=== PATIENT | female | born 1980 | race Caucasian/White ===

== ENCOUNTER 2018-09-29 10:44 | Emergency (ER) | payer OTHER ==
[2018-09-29 10:53] VITALS: TEMP 98.1
[2018-09-29] MEDS ORDERED: SODIUM CHLORIDE 0.9% 1,000 ML IV STA (11:20)
--- NOTE | 2018-09-29 11:30 | ED ---
General Adult HPI - General Chief complaint: Shortness of Breath Stated complaint: cough/SOB Time Seen by Provider: 09/29/18 10:58 Source: patient, RN notes reviewed Mode of arrival: ambulatory Limitations: no limitations - History of Present Illness Initial comments: Patient is a 38-year-old female presented to the emergency room today with a chief complaint of increased cough congestion shortness of breath. She does admit that symptoms started last week. She states that it started as a cold with cough and congestion. She states that she still having some sinus drainage that she is having consistent coughing that she feels is making her feel short of breath. She states that if she gets up from she feels more short of breath and cannot stop coughing. Patient denies any pain. She denies any other complaints or symptoms currently. Patient denies any recent fever, chills , chest pain, back pain, abdominal pain, nausea or vomiting, numbness or tingling, headaches or visual changes, or any other complaints. - Related Data Previous Rx's Medication Instructions Recorded Azithromycin [Zithromax Z-pack] 0 mg PO DIRECTED #6 tab 09/29/18 Benzonatate [Tessalon Perles] 100 mg PO TID PRN #20 capsule 09/29/18 Allergies Allergy/AdvReac Type Severity Reaction Status Date / Time No Known Allergies Allergy Verified 09/29/18 11:23 Review of Systems ROS Statement: Those systems with pertinent positive or pertinent negative responses have been documented in the HPI. ROS Other: All systems not noted in ROS Statement are negative. Past Medical History Past Medical History: No Reported History History of Any Multi-Drug Resistant Organisms: None Reported Additional Past Surgical History / Comment(s): cyst removal from neck x2, lacerated liver/collapsed lung surgery, carpal tunnel surger on right arm Past Psychological History: No Psychological Hx Reported Smoking Status: Former smoker Past Alcohol Use History: Occasional Past Drug Use History: None Reported General Exam - General Exam Comments Initial Comments: General: The patient is awake and alert, in no distress, and does not appear acutely ill. Eye: Pupils are equal, round and reactive to light. Extra-ocular movements are intact. No nystagmus. There is normal conjunctiva bilaterally. No signs of icterus. Ears, nose, mouth and throat: There are moist mucous membranes and no oral lesions. Neck: The neck is supple, there is no tenderness or JVD. Cardiovascular: There is a regular rate and rhythm. No murmur, rub or gallop is appreciated. Respiratory: Lungs are clear to auscultation, respirations are non-labored, breath sounds are equal. No wheezes, stridor, rales, or rhonchi. Musculoskeletal: Normal ROM, no tenderness. Sensation intact. Strength 5/5. Pulses equal bilaterally 2+. Neurological: A&O x 3. CN II-XII intact, There are no obvious motor or sensory deficits. Coordination appears grossly intact. Speech is normal. Skin: Skin is warm and dry and no rashes or lesions are noted. Psychiatric: Cooperative, appropriate mood & affect, normal judgment. Limitations: no limitations Course Vital Signs 09/29/18 09/29/18 10:50 11:47 Temperature 98.1 F Pulse Rate 95 78 Respiratory 20 18 Rate Blood Pressure 129/87 125/86 O2 Sat by Pulse 96 97 Oximetry Medical Decision Making - Medical Decision Making Patient's labs been reviewed she patient's CT the chest is negative for any evidence of a PE. There is a left lower lobe pneumonia. Was discussed about a right renal mass. Patient will be given dose Rocephin here in emergency room discharged home on azithromycin also cough medication. Advised follow-up family doctor further evaluation return if symptoms increase or worsen. - Lab Data Result diagrams: 09/29/18 11:43 09/29/18 11:43 Lab Results 09/29/18 09/29/18 09/29/18 Range/Units 11:43 11:43 11:43 WBC 7.2 (3.8-10.6) k/uL RBC 4.48 (3.80-5.40) m/uL Hgb 12.8 (11.4-16.0) gm/dL Hct 38.9 (34.0-46.0) % MCV 86.7 (80.0-100.0) fL MCH 28.4 (25.0-35.0) pg MCHC 32.8 (31.0-37.0) g/dL RDW 13.8 (11.5-15.5) % Plt Count 345 (150-450) k/uL Neutrophils % 69 % Lymphocytes % 19 % Monocytes % 7 % Eosinophils % 2 % Basophils % 1 % Neutrophils # 5.0 (1.3-7.7) k/uL Lymphocytes # 1.4 (1.0-4.8) k/uL Monocytes # 0.5 (0-1.0) k/uL Eosinophils # 0.1 (0-0.7) k/uL Basophils # 0.0 (0-0.2) k/uL PT (9.0-12.0) sec INR (<1.2) APTT (22.0-30.0) sec D-Dimer (<0.60) mg/L FEU Sodium 140 (137-145) mmol/L Potassium 4.5 (3.5-5.1) mmol/L Chloride 107 (98-107) mmol/L Carbon Dioxide 25 (22-30) mmol/L Anion Gap 8 mmol/L BUN 14 (7-17) mg/dL Creatinine 0.65 (0.52-1.04) mg/dL Est GFR (CKD-EPI)AfAm >90 (>60 ml/min/1.73 sqM) Est GFR (CKD-EPI)NonAf >90 (>60 ml/min/1.73 sqM) Glucose 94 (74-99) mg/dL Calcium 9.5 (8.4-10.2) mg/dL Total Bilirubin 0.3 (0.2-1.3) mg/dL AST 20 (14-36) U/L ALT 18 (9-52) U/L Alkaline Phosphatase 93 (38-126) U/L Total Creatine Kinase 116 (30-135) U/L CK-MB (CK-2) 0.9 (0.0-2.4) ng/mL CK-MB (CK-2) Rel Index 0.8 Troponin I <0.012 (0.000-0.034) ng/mL Total Protein 7.3 (6.3-8.2) g/dL Albumin 3.9 (3.5-5.0) g/dL 09/29/18 Range/Units 11:43 WBC (3.8-10.6) k/uL RBC (3.80-5.40) m/uL Hgb (11.4-16.0) gm/dL Hct (34.0-46.0) % MCV (80.0-100.0) fL MCH (25.0-35.0) pg MCHC (31.0-37.0) g/dL RDW (11.5-15.5) % Plt Count (150-450) k/uL Neutrophils % % Lymphocytes % % Monocytes % % Eosinophils % % Basophils % % Neutrophils # (1.3-7.7) k/uL Lymphocytes # (1.0-4.8) k/uL Monocytes # (0-1.0) k/uL Eosinophils # (0-0.7) k/uL Basophils # (0-0.2) k/uL PT 9.6 (9.0-12.0) sec INR 1.0 (<1.2) APTT 23.8 (22.0-30.0) sec D-Dimer 0.51 (<0.60) mg/L FEU Sodium (137-145) mmol/L Potassium (3.5-5.1) mmol/L Chloride (98-107) mmol/L Carbon Dioxide (22-30) mmol/L Anion Gap mmol/L BUN (7-17) mg/dL Creatinine (0.52-1.04) mg/dL Est GFR (CKD-EPI)AfAm (>60 ml/min/1.73 sqM) Est GFR (CKD-EPI)NonAf (>60 ml/min/1.73 sqM) Glucose (74-99) mg/dL Calcium (8.4-10.2) mg/dL Total Bilirubin (0.2-1.3) mg/dL AST (14-36) U/L ALT (9-52) U/L Alkaline Phosphatase (38-126) U/L Total Creatine Kinase (30-135) U/L CK-MB (CK-2) (0.0-2.4) ng/mL CK-MB (CK-2) Rel Index Troponin I (0.000-0.034) ng/mL Total Protein (6.3-8.2) g/dL Albumin (3.5-5.0) g/dL Disposition Clinical Impression: CAP (community acquired pneumonia), Kidney mass Disposition: HOME SELF-CARE Condition: Good Instructions: Community Acquired Pneumonia (ED) Additional Instructions: Please use medication as discussed. Please follow-up with family doctor in the next 2 days of symptoms have not improved. Please return to emergency room if the symptoms increase or worsen or for any other concerns. Prescriptions: Azithromycin [Zithromax Z-pack] 0 mg PO DIRECTED #6 tab Benzonatate [Tessalon Perles] 100 mg PO TID PRN #20 capsule PRN Reason: Cough Is patient prescribed a controlled substance at d/c from ED?: No Referrals: Florencia Hoyos [Primary Care Provider] - 1-2 days Time of Disposition: 14:32
[2018-09-29 11:48] VITALS: RESP 18
[2018-09-29 12:11] LABS: Basophils % (A) 1 %; Eosinophils # (A) 0.1 k/uL (0-0.7); Eosinophils % (A) 2 %; HCT 38.9 % (34.0-46.0); HGB 12.8 gm/dL (11.4-16.0); Lymphocytes # (A) 1.4 k/uL (1.0-4.8); Lymphocytes % (A) 19 %; MCH 28.4 pg (25.0-35.0); MCHC 32.8 g/dL (31.0-37.0); MCV 86.7 fL (80.0-100.0); Mean Platelet Volume 6.7; Monocytes # (A) 0.5 k/uL (0-1.0); Monocytes % (A) 7 %; Neutrophils % (A) 69 %; Platelet Count 345 k/uL (150-450); RBC 4.48 m/uL (3.80-5.40); RDW 13.8 % (11.5-15.5); WBC 7.2 k/uL (3.8-10.6)
[2018-09-29 12:25] LABS: ALT 18 U/L (9-52); AST 20 U/L (14-36); Albumin 3.9 g/dL (3.5-5.0); Alkaline Phosphatase 93 U/L (38-126); Anion Gap 8 mmol/L; Blood Urea Nitrogen 14 mg/dL (7-17); Calcium 9.5 mg/dL (8.4-10.2); Carbon Dioxide 25 mmol/L (22-30); Chloride 107 mmol/L (98-107); Glucose 94 mg/dL (74-99); Potassium 4.5 mmol/L (3.5-5.1); Sodium 140 mmol/L (137-145); Total Bilirubin 0.3 mg/dL (0.2-1.3); Total Protein 7.3 g/dL (6.3-8.2)
[2018-09-29 12:29] LABS: D-Dimer 0.51 mg/L FEU (<0.60); Partial Thromboplastin Time 23.8 sec (22.0-30.0); Prothrombin Time 9.6 sec (9.0-12.0)
--- NOTE | 2018-09-29 12:46 | XR ---
EXAMINATION TYPE: XR chest 2V DATE OF EXAM: 09/29/2018 COMPARISON: None INDICATION: Difficulty breathing, cough TECHNIQUE: Frontal and lateral views of the chest are obtained. FINDINGS: The heart size is normal. The pulmonary vasculature is normal. There is a large posterior consolidation at the left base. Correlate for pneumonia, treatment and fol low-up is recommended. IMPRESSION: 1. Retrocardiac consolidation. Correlate for pneumonia. Follow-up examinations to clearing are recomm ended.
[2018-09-29 12:47] LABS: Creatine Kinase MB 0.9 ng/mL (0.0-2.4); Troponin I <0.012 ng/mL (0.000-0.034)
[2018-09-29 12:50] LABS: Creatine Kinase 116 U/L (30-135)
--- NOTE | 2018-09-29 13:46 | CT ---
CT CHEST FOR PULMONARY EMBOLISM. EXAMINATION TYPE: CT angio chest DATE OF EXAM: 09/29/2018 INDICATION: SOB CT DLP: 446.9 mGycm, Automated exposure control for dose reduction was used. CONTRAST: Patient injected with 82 mL of Isovue 370. COMPARISON: None TECHNIQUE: CT of the chest is performed on a spiral scan at 2 mm thick sections. Study is performed with intravenous contrast timed for evaluation for pulmonary embolism. This will limit additional po rtions of the evaluation. 3-D MIP images reconstructed by the technologist are reviewed on the compu ter in the coronal and sagittal planes. FINDINGS: No persistent filling defects are evident to suggest an acute pulmonary embolism. No mediastinal or hilar adenopathy enlarged by CT criteria is evident. Small shotty lymph nodes are present at the aortopulmonic window. There is some prominence of soft tissues in the subcarinal eva on. This may be a small lymph node and/or esophagus. The ascending aorta diameter at the level of the main pulmonary artery is 3.2 cm. The main pulmonary artery diameter at the bifurcation is 2.1 cm. There is a posterior lateral left lower lobe consolidation. Correlate for pneumonia. Underlying mass is not excluded. Follow-up to clearing is recommended. There is elevation of the right diaphragm. Limited CT section through the upper abdomen. Slightly hypodense mass superior posterior medial righ t kidney is not excluded. Consider evaluation with ultrasound. IMPRESSIONS: 1. No acute pulmonary embolism. 2. Slight prominence of the soft tissues of the subcarinal region. 3. Masslike area may be at the superior medial right kidney. Consideration for ultrasound evaluation is recommended.
[2018-09-29 15:36] VITALS: BP 132/75; PULSE 85
== END 2018-09-29 15:36 | disposition home or self-care (01) ==
LOC: EC 10:44
DX: J18.9 Pneumonia, unspecified organism (principal); N28.89 Other specified disorders of kidney and ureter; Z87.891 Personal history of nicotine dependence
CPT/HCPCS: 36415; 93005; 85379; 80053; 82550; 82553; 84484; 85025; 85610; 85730; 71046; 71275; 99285; 96365; 96361 ×3; J0696; Q9967

== ENCOUNTER → 2018-10-20 | Outpatient (CLI) | payer OTHER ==
--- NOTE | 2018-10-20 08:52 | US ---
EXAMINATION TYPE: US kidneys/renal and bladder DATE OF EXAM: 10/20/2018 COMPARISON: CT. This is F/U to CT CLINICAL HISTORY: N28.89 disorder of kidney and ureter. EXAM MEASUREMENTS: Right Kidney: 11.1 x 4.9 x 5.5 cm Left Kidney: 12.8 x 5.1 x 5.5 cm Patient of large body habitus with extensive midline bowel gas. Right Kidney: Only able to visualize intercostally, limited views, unable to visualize mass seen on C T, but this may be due to limitations. Superior pole somewhat obscured Left Kidney: No hydronephrosis or masses seen Bladder: wnl Bilateral Jets seen: Yes There is no evidence for hydronephrosis at this point in time. No nephrolithiasis is seen. No ismael s are identified. The urinary bladder is anechoic. Bilateral ureteral jets are seen. IMPRESSION: Unfortunately the exam is limited by patient body habitus and obscuration by bowel gas therefore the superior pole of the right kidney could not be visualized despite multiple attempts. Further evaluati on of the possible right upper pole mass question on the exam of 09/27/2018 is recommended with three -phase enhanced CT abdomen.
== END | disposition home or self-care (01) ==
LOC: RADUSWWP 07:00
PROVIDERS: ATTEND Family Medicine
DX: N28.89 Other specified disorders of kidney and ureter (principal)
CPT/HCPCS: 76770

== ENCOUNTER → 2018-10-31 | Outpatient (CLI) | payer OTHER ==
--- NOTE | 2018-10-31 08:40 | MR ---
EXAMINATION TYPE: MR knee LT wo con DATE OF EXAM: 10/31/2018 COMPARISON: Left knee x-ray October 16, 2018 HISTORY: Left knee pain per order, pain for 5 months per patient. TECHNIQUE: Multiplanar, multisequence images of the knee is performed without IV contrast. FINDINGS: MEDIAL MENISCUS: Anterior horn is intact without tear. Some globular increased signal posterior horn of medial meniscus is identified does not extend to articular surface, cannot exclude intrasubstance tear. LATERAL MENISCUS: Anterior and posterior horns are intact without tear. CRUCIATE LIGAMENTS: The anterior and posterior cruciate ligaments are intact and unremarkable. COLLATERAL LIGAMENTS: The medial collateral ligament and lateral collateral ligament complex are inta ct and unremarkable. EXTENSOR MECHANISM: Visualized quadriceps and patellar tendons are intact. EFFUSION: No significant suprapatellar joint effusion. POPLITEAL CYST: No popliteal/roblero cyst. TRICOMPARTMENT SPACES: Tricompartment joint spaces show mild narrowing most prominent over the patell ofemoral compartment. No significant spurring is seen. Medial retinaculum remains intact at area of x -ray concern. CARTILAGE: Tricompartment articular cartilage is maintained. BONE MARROW SIGNAL: Some heterogeneity consistent with red marrow reconversion is present. OTHER: No additional significant abnormality is appreciated. IMPRESSION: No full-thickness meniscal or ligamentous tear is seen.
== END | disposition home or self-care (01) ==
LOC: RADMRIMAIN 07:52
PROVIDERS: ATTEND Physician Assistant
DX: M25.562 Pain in left knee (principal)

== ENCOUNTER → 2018-11-19 | Outpatient (CLI) | payer OTHER ==
--- NOTE | 2018-11-19 10:29 | CT ---
EXAMINATION TYPE: CT abdomen wo/w con DATE OF EXAM: 11/19/2018 HISTORY: Follow up Renal mass on US CT DLP: 2026mGycm Automated Exposure Control for Dose Reduction was Utilized. CONTRAST: CT scan of the abdomen is performed without and with IV Contrast, patient injected with 100 mL of Iso efren 300. COMPARISON: Renal ultrasound dated 10/20/2018 FINDINGS: LUNG BASES: No significant abnormality is appreciated. LIVER/GB: There is somewhat abnormal morphology of the liver with fat containing left in the right he patic lobe. The liver is also enlarged although does not meet criteria for hepatic steatosis. No chol elithiasis. PANCREAS: No significant abnormality is seen. SPLEEN: No significant abnormality is seen. ADRENALS: No significant abnormality is seen. KIDNEYS: There is abnormal morphology of the superior pole of the right kidney. On axial series 6 armando ge 8 there is a hypoechoic region that appears to represent a prominent medullary space, however infe rior to this on series 6 image 10 there is an elongated abnormally enhancing region measuring 4.0 cm in length and is not clearly separable from the renal cortex although again does have an abnormal mar gin. On delayed images this region to represent attenuation in comparison to the remainder of the rig ht kidney cortex and appears hypoattenuated with an average Hounsfield unit of 45. Precontrast imagin g demonstrates an average Hounsfield unit of fluid (9.6) however there is abnormal enhancement with a postcontrast Hounsfield unit of 82. The remainder the bilateral kidneys demonstrate lobulated contours. No other suspicious renal mass is seen. No hydronephrosis of either kidney. BOWEL: No dilated large or small bowel. LYMPH NODES: No greater than 1cm abdominal or pelvic lymph nodes are appreciated. OSSEOUS STRUCTURES: No significant abnormality is seen. OTHER: There is a small fat filled periumbilical hernia. IMPRESSION: There is abnormal morphology and enhancement of the right upper pole of the kidney, however this does not present as a clearly distinguishable renal mass. Additionally there are lobulated contours of dayanara th kidneys and abnormal morphology of the liver. Therefore the renal morphology could relate to conge nital abnormality or posttraumatic abnormality although mass remains a possibility. Therefore short-t erm follow-up exams are recommended to ensure stability with initial recommendation of CT at 3 months . If there is interval change attempt at percutaneous biopsy would be recommended although at a diffi cult location, not seen on ultrasound.
== END | disposition home or self-care (01) ==
LOC: RADCTMAIN 08:49
PROVIDERS: ATTEND Family Medicine
DX: N28.89 Other specified disorders of kidney and ureter (principal)
CPT/HCPCS: 74170; Q9967

== ENCOUNTER → 2019-01-12 | Outpatient (CLI) | payer OTHER ==
--- NOTE | 2019-01-12 14:10 | MM ---
Reason for exam: screening (asymptomatic). Baseline mammogram. Physical Findings: Nurse did not find any significant physical abnormalities on exam. MG Screening Mammo w CAD Bilateral CC and MLO view(s) were taken. The breast tissue is heterogeneously dense. This may lower the sensitivity of mammography. There is no discrete abnormality. These results were verbally communicated with the patient and result sheet given to the patient on 01/12/19. ASSESSMENT: Benign, BI-RAD 2 RECOMMENDATION: Routine screening mammogram of both breasts in 1 year.
== END | disposition home or self-care (01) ==
LOC: RADMAMWWP 12:57
PROVIDERS: ATTEND Family Medicine
DX: Z12.31 Encounter for screening mammogram for malignant neoplasm of breast (principal)
CPT/HCPCS: 77067

== ENCOUNTER → 2019-02-20 | Outpatient (CLI) | payer OTHER ==
--- NOTE | 2019-02-20 16:34 | CT ---
EXAMINATION TYPE: CT abdomen w con DATE OF EXAM: 02/20/2019 COMPARISON: 11/19/2018 INDICATION: f/u abnormal findings on prior scan DLP: 1450.5 mGycm, Automated exposure control for dose reduction was used. CONTRAST: 100 mL of Isovue 300. Study performed with Oral Contrast TECHNIQUE: Axial images were obtained from above the diaphragm to the pubic rami in the axial plane a t 5 mm thick sections. Reconstructed images are reviewed on the computer in the coronal plane. FINDINGS: Limited CT sections are obtained the lung bases. The lung bases are clear. CT ABDOMEN: Liver: Normal Spleen: Normal Pancreas: Normal Adrenal glands: The adrenal glands are normal. Gallbladder: Normal Kidneys: No masses are evident. The upper pole morphology of the right kidney is stable over the inte rval. No growth is evident. Utilizing similar measurements at the area on the posterior medial right kidney appears to be stable in size. No hydronephrosis is evident on either kidney. No renal cysts are evident. The kidney on the right ri glenny high within the eventration of the right diaphragm. Aorta: Normal Inferior vena cava: Normal. The appendix is normal. Loops of bowel distended with oral contrast normal. The colon contains fecal debris. IMPRESSIONS: 1. Stable appearance of the posterior superior right renal morphology. This appears more suggestive for benign process. Continued monitoring however is recommended to confirm stability over a series of exams. Follow-up CT abdomen in 3 months is recommended
== END ==
LOC: RADCTMAIN 15:23
PROVIDERS: ATTEND Physician Assistant
DX: N28.9 Disorder of kidney and ureter, unspecified (principal)
CPT/HCPCS: 74160; Q9967